=== PATIENT | male | born 1990 | race Caucasian/White ===

== ENCOUNTER 2018-10-27 20:10 | Inpatient (IN) | payer MEDICAID ==
[~2018-10-27] VITALS: Ht 177.8 cm; Wt 76.0 kg
[~2018-10-27 20:10] MED LIST: MESA400C2 PO; METO-292 PO; NO HOME MEDS; ONDA4TAB12 PO; ONDA4TAB6 PO; PHE12.5T PO
[2018-10-27 20:51] LABS: BASOPHILS % (AUTO) 0.4 % (0-1); EOSINOPHILS # (AUTO) 0.1 X10'3 (0-0.9); HEMATOCRIT 46.2 % (42.0-52.0); HEMOGLOBIN 15.6 g/dl (14.0-17.9); LYMPHOCYTES # (AUTO) 2.1 X10'3 (1.1-4.8); LYMPHOCYTES % (AUTO) 19.4 % (21-51); MEAN CORPUSCULAR HEMOGLOBIN 28.5 PG (27.0-31.0); MEAN CORPUSCULAR HGB CONC 33.8 g/dL (33.0-36.5); MEAN CORPUSCULAR VOLUME 84.4 FL (78-98); MEAN PLATELET VOLUME 7.5 FL (7.4-10.4); MONOCYTES # (AUTO) 1.2 X10'3 (0-0.9); MONOCYTES % (AUTO) 10.8 % (2-12); NEUTROPHILS # (AUTO) 7.4 X10'3 (1.8-7.7); NEUTROPHILS % (AUTO) 68.4 % (42-75); PLATELET COUNT 381 X10'3 (140-440); RED BLOOD COUNT 5.48 X10'6 (4.70-6.10); RED CELL DISTRIBUTION WIDTH 13.1 % (11.5-14.5); WHITE BLOOD COUNT 10.8 X10'3 (4.5-11.0)
[2018-10-27 21:10] LABS: ALANINE AMINOTRANSFERASE 19 U/L (12-78); ALBUMIN 3.7 G/DL (3.4-5.0); ALBUMIN/GLOBULIN RATIO 0.9 (1.1-1.5); ALKALINE PHOSPHATASE 94 IU/L (46-116); ANION GAP 14 (8-16); ASPARTATE AMINO TRANSFERASE 10 U/L (10-37); BILIRUBIN,TOTAL 0.6 MG/DL (0.1-1.0); BLOOD UREA NITROGEN 14 MG/DL (7-18); BUN/CREATININE RATIO 16.5 (5.4-32.0); CALCIUM 9.4 MG/DL (8.5-10.1); CHLORIDE 96 MMOL/L (99-107); CREATININE 0.85 MG/DL (0.60-1.10); GLUCOSE 94 MG/DL (70-104); POTASSIUM 3.6 MMOL/L (3.5-5.1); SODIUM 134 MMOL/L (135-145); TOTAL CARBON DIOXIDE 24.3 MMOL/L (24-32); TOTAL PROTEIN 7.8 G/DL (6.4-8.2); eGFR > 90 ML/MIN
[2018-10-27 21:23] LABS: TOTAL CELLS COUNTED 100
[2018-10-27 21:24] LABS: METAMYLEOCYTES% (MANUAL) 1 % (0-0); MYELOCYTES % (MANUAL) 0 % (0-0)
[2018-10-27 21:25] LABS: PLATELET ESTIMATE NORMAL; TOXIC VACUOLATION 2+
[2018-10-27 22:57] LABS: CLARITY,URINE CLEAR (Clear); COLOR,URINE ORANGE (Yellow); UA COLLECTION TYPE VOIDED
[2018-10-27 23:02] LABS: BACTERIA,URINE NONE SEEN /HPF (Neg); MUCUS STRANDS FEW /LPF (Neg); RBC,URINE 0-2 /HPF (0-2); SQUAMOUS EPITHELIAL CELL,UR NONE SEEN /LPF (FEW); WBC,URINE 0-4 /HPF (0-4)
[2018-10-27] MEDS ORDERED: normal saline 1000ML IV soln IVB ONE (23:20)
[2018-10-27] MEDS ORDERED: ondansetron/PF 4mg/2ml inj IV ONE (23:20)
[2018-10-27] MEDS ORDERED: iohexol 300mg/ml 100ml inj. ONE (23:24)
[2018-10-28] VITALS (24 sets, daily range): BP systolic 123–146; BP diastolic 66–86
[2018-10-28] MEDS: morphine 4 MG/ML inj SYRINge IV PRN ×2 (00:05→03:53)
[2018-10-28] MEDS: piperacillin/tazo 4.5gm/100ml 100 ML IV SCH ×3 (00:08→09:27)
[2018-10-28] MEDS ORDERED: morphine 4 MG/ML inj SYRINge IV ONE (01:30)
[2018-10-28] MEDS ORDERED: SULF500T59 PO (01:56)
[2018-10-28] MEDS ORDERED: morphine 2 MG/ML inj. syringe IV PRN ×3 (03:35→10:00)
[2018-10-28] MEDS: normal saline 1000ml 1,000 ML IV SCH ×3 (03:48→23:35)
--- NOTE | 2018-10-28 06:08 | NUR ---
Problems reprioritized. Patient report given, questions answered & plan of care reviewed with NALINI Cooney. Addendum: 10/28/18 at 0608 by Buffy Olivarez RN Amended: Links added.
[2018-10-28] MEDS: sulfaSALAZINE 500 MG tablet PO SCH ×4 (07:13→19:49)
[2018-10-28] MEDS: lactobacillus rhamnosus 10,000 MMU CELLS/CAPSULE PO SCH ×2 (07:14→19:49)
[2018-10-28] MEDS ORDERED: ciprofloxacin lact 400MG/200ML 200 ML IV SCH (08:00)
--- NOTE | 2018-10-28 08:45 | NUR ---
Patients 0800 Zosyn is not available. Called pharmacy they are having axillary bring the medication up. Will administer when medication is available to me.
[2018-10-28 09:04] LABS: BASOPHILS % (AUTO) 0.2 % (0-1); EOSINOPHILS # (AUTO) 0.1 X10'3 (0-0.9); EOSINOPHILS % (AUTO) 1.3 % (0-6); HEMATOCRIT 42.3 % (42.0-52.0); HEMOGLOBIN 14.1 g/dl (14.0-17.9); LYMPHOCYTES # (AUTO) 1.7 X10'3 (1.1-4.8); LYMPHOCYTES % (AUTO) 15.3 % (21-51); MEAN CORPUSCULAR HGB CONC 33.3 g/dL (33.0-36.5); MEAN CORPUSCULAR VOLUME 84.1 FL (78-98); MEAN PLATELET VOLUME 7.5 FL (7.4-10.4); MONOCYTES # (AUTO) 1.4 X10'3 (0-0.9); MONOCYTES % (AUTO) 12.9 % (2-12); NEUTROPHILS # (AUTO) 7.9 X10'3 (1.8-7.7); NEUTROPHILS % (AUTO) 70.3 % (42-75); PLATELET COUNT 300 X10'3 (140-440); RED BLOOD COUNT 5.03 X10'6 (4.70-6.10); RED CELL DISTRIBUTION WIDTH 13.6 % (11.5-14.5); WHITE BLOOD COUNT 11.2 X10'3 (4.5-11.0)
[2018-10-28] MEDS: metroNIDAZOLE-Flagyl 500mg/NS 100 ML IV SCH ×2 (09:08→16:15)
[2018-10-28 09:23] LABS: ALBUMIN 2.7 G/DL (3.4-5.0); ANION GAP 8 (8-16); BLOOD UREA NITROGEN 14 MG/DL (7-18); BUN/CREATININE RATIO 15.4 (5.4-32.0); CALCIUM 7.8 MG/DL (8.5-10.1); CHLORIDE 101 MMOL/L (99-107); CREATININE 0.91 MG/DL (0.60-1.10); GLUCOSE 120 MG/DL (70-104); POTASSIUM 3.1 MMOL/L (3.5-5.1); SODIUM 135 MMOL/L (135-145); TOTAL CARBON DIOXIDE 26.1 MMOL/L (24-32); eGFR > 90 ML/MIN
[2018-10-28 09:44] LABS: PLATELET ESTIMATE NORMAL; TOTAL CELLS COUNTED 100
[2018-10-28 09:45] LABS: TOXIC GRANULATION 2+
[2018-10-28] MEDS ORDERED: magnesium 2GM in 50ml NS 50 ML IV PRN (09:55)
[2018-10-28] MEDS ORDERED: potassium Cl 20 mEq SR tablet PO PRN (09:55)
[2018-10-28] MEDS ORDERED: magnesium 4gm in 100ml NS 100 ML IV PRN (09:55)
[2018-10-28] MEDS ORDERED: magnesium Cl slow-release 64mg tablet PO PRN (09:55)
[2018-10-28] MEDS ORDERED: potassium Cl 40MEQ/NS 500ml 500 ML IV PRN ×2 (09:55)
[2018-10-28] MEDS: morphine 2 MG/ML inj. syringe IV PRN ×2 (10:26→23:13)
[2018-10-28] MEDS: potassium Cl 20 mEq SR tablet PO PRN (10:29)
--- NOTE | 2018-10-28 13:11 | NUR ---
Patient admitted with IBD flair up, per H&P patient had recent diagnosis of ulcerative colitis in 2016, h/o Crohn's. Currently NPO, pending surgery evaluation. Pt has c/o nausea, vomiting, diarrhea and blood in stool. Last documented weight is from 2017 at that time he weighed 63.5 kg, currently weighs 76 kg. Recent poor intake likely d/t n/v r/t flair up. No edema, normal muscle strength. Weight is 101% of IBW. no signs of malnutrition at this time, however will continue to follow and make recommendations as appropriate. Addendum: 10/28/18 at [address] Amended: Links added.
[2018-10-28] MEDS ORDERED: BUPIVAcaine/PF 2.5 mg/ml (0.25%) 30ml vial ONE ×2 (15:32→15:50)
[2018-10-28] MEDS ORDERED: LIDOcaine 1% 30ml preserv. free vial ONE ×2 (15:32→15:50)
--- NOTE | 2018-10-28 15:36 | NUR ---
REPORT CALLED TO JUMANA GAYLE IN RECOVERY. BURAK PICKED PATIENT UP. OPAL SENT WITH PATIENT
[2018-10-28] MEDS ORDERED: sevoflurane 250ml liquid IH ONE (15:56)
[2018-10-28] MEDS ORDERED: midazolam 2 mg/2 ml injection ONE (15:57)
[2018-10-28] MEDS ORDERED: fentaNYL /PF 50mcg/ml 5ml ampule ONE (15:57)
[2018-10-28] MEDS ORDERED: propofol inj 20 ML IV ONE (15:58)
[2018-10-28] MEDS ORDERED: rocuronium 10mg/ml inj IV ONE (15:58)
[2018-10-28] MEDS ORDERED: cefotetan 2gm/isosm dext IVPB 50 ML IV ONE (16:12)
[2018-10-28] MEDS ORDERED: neostigmine methylsulfate 1 MG/ML 10ml vial ONE (16:33)
[2018-10-28] MEDS ORDERED: glycopyrrolate 0.2mg/ml inj ONE (16:33)
--- NOTE | 2018-10-28 16:49 | NUR ---
Received from OR via BED, accompanied by Anesthesiologist DR SANTA and report given by Anesthesiologist. PT AWAKE, DENIES PAIN, 3 ABDOMINAL LAP SITES W/BANDAIDS CDI. Addendum: 10/28/18 at 1714 by Lesa Curry RN Amended: Links added.
[2018-10-28] MEDS ORDERED: HYDROcodone/acetaminophen 5mg/325mg tablet PO PRN (16:50)
[2018-10-28] MEDS ORDERED: ringers solution, lacted 1,000 ML IV SCH (17:08)
[2018-10-28] MEDS ORDERED: morphine 4 MG/ML inj SYRINge IV PRN ×2 (17:10)
[2018-10-28] MEDS ORDERED: meperidine/PF 25mg/ml syringe IV PRN (17:10)
[2018-10-28] MEDS ORDERED: ondansetron/PF 4mg/2ml inj IV PRN (17:10)
[2018-10-28] MEDS ORDERED: proCHLORperazine 10 MG/2 ml inj IV PRN (17:10)
[2018-10-28] MEDS: meperidine/PF 25mg/ml syringe IV PRN ×4 (17:17→18:03)
--- NOTE | 2018-10-28 18:09 | NUR ---
Problems reprioritized. Patient report given, questions answered & plan of care reviewed with NALINI Escalante.
--- NOTE | 2018-10-28 18:30 | NUR ---
I have received report from ELIUD GAYLE and had the opportunity to ask questions and assume patient care. PATIENT STILL IN RECOVERY ROOM.
--- NOTE | 2018-10-28 18:49 | NUR ---
Report called to receiving nurse. Transferred via BED, NO Belonging, RECEIVING RN/COTTON SEED CULLER IN ROOM TO RECEIVE PT, BLL, CALL LIGHT GIVEN, SIDE RAILS UP X 2. Special Issues communicated to receiving nurse. YES. Addendum: 10/28/18 at 1901 by Lesa Curry RN Amended: Links added.
--- NOTE | 2018-10-28 18:50 | NUR ---
PATIENT TRANSFERRED TO ROOM 359B FROM RECOVERY ROOM AFTER LAP APPY WAS DONE BY DR. WAGGONER. PLACED COMFORTABLE IN BED. VITAL SIGNS MONITORED.
[2018-10-28] MEDS: ketorolac tromethamine 15mg/ml inj. IV SCH (19:43)
[2018-10-28] MEDS: ondansetron/PF 4mg/2ml inj IV PRN (19:46)
[2018-10-29] VITALS: BP 128/71
[2018-10-29] MEDS: metroNIDAZOLE-Flagyl 500mg/NS 100 ML IV SCH ×3 (00:13→16:45)
[2018-10-29] MEDS: ketorolac tromethamine 15mg/ml inj. IV SCH ×3 (02:33→14:00)
[2018-10-29] MEDS: normal saline 1000ml 1,000 ML IV SCH ×2 (04:38→19:35)
[2018-10-29] MEDS: morphine 2 MG/ML inj. syringe IV PRN ×3 (05:43→21:28)
[2018-10-29 06:21] LABS: BASOPHILS % (AUTO) 0.2 % (0-1); EOSINOPHILS # (AUTO) 0.2 X10'3 (0-0.9); EOSINOPHILS % (AUTO) 2.1 % (0-6); HEMATOCRIT 38.7 % (42.0-52.0); LYMPHOCYTES # (AUTO) 1.2 X10'3 (1.1-4.8); LYMPHOCYTES % (AUTO) 13.7 % (21-51); MEAN CORPUSCULAR HEMOGLOBIN 28.4 PG (27.0-31.0); MEAN CORPUSCULAR HGB CONC 33.5 g/dL (33.0-36.5); MEAN CORPUSCULAR VOLUME 84.6 FL (78-98); MEAN PLATELET VOLUME 7.8 FL (7.4-10.4); MONOCYTES # (AUTO) 1.1 X10'3 (0-0.9); MONOCYTES % (AUTO) 12.6 % (2-12); NEUTROPHILS # (AUTO) 6.2 X10'3 (1.8-7.7); NEUTROPHILS % (AUTO) 71.4 % (42-75); PLATELET COUNT 294 X10'3 (140-440); RED BLOOD COUNT 4.57 X10'6 (4.70-6.10); RED CELL DISTRIBUTION WIDTH 13.4 % (11.5-14.5); WHITE BLOOD COUNT 8.7 X10'3 (4.5-11.0)
[2018-10-29 06:23] LABS: ANION GAP 14 (8-16); BLOOD UREA NITROGEN 6 MG/DL (7-18); BUN/CREATININE RATIO 8.6 (5.4-32.0); CALCIUM 7.9 MG/DL (8.5-10.1); CHLORIDE 102 MMOL/L (99-107); GLUCOSE 84 MG/DL (70-104); MAGNESIUM 1.7 MG/DL (1.5-2.4); POTASSIUM 3.1 MMOL/L (3.5-5.1); SODIUM 136 MMOL/L (135-145); TOTAL CARBON DIOXIDE 20.3 MMOL/L (24-32); eGFR > 90 ML/MIN
[2018-10-29 06:24] LABS: ALANINE AMINOTRANSFERASE 13 U/L (12-78); ALBUMIN 2.2 G/DL (3.4-5.0); ALBUMIN/GLOBULIN RATIO 0.6 (1.1-1.5); ALKALINE PHOSPHATASE 67 IU/L (46-116); ASPARTATE AMINO TRANSFERASE 10 U/L (10-37); BILIRUBIN,TOTAL 0.4 MG/DL (0.1-1.0); TOTAL PROTEIN 5.8 G/DL (6.4-8.2)
--- NOTE | 2018-10-29 06:30 | NUR ---
Patient in room [facility]. I have received report from DANN QUIGLEY RN and had the opportunity to ask questions and assume patient care.
--- NOTE | 2018-10-29 06:30 | NUR ---
Problems reprioritized. Patient report given, questions answered & plan of care reviewed with BRITNI GAYLE.
[2018-10-29 07:00] VITALS: BP 128/72
[2018-10-29] MEDS: lactobacillus rhamnosus 10,000 MMU CELLS/CAPSULE PO SCH ×2 (08:52→21:26)
[2018-10-29] MEDS: sulfaSALAZINE 500 MG tablet PO SCH ×4 (08:52→21:26)
[2018-10-29] MEDS: potassium Cl 20 mEq SR tablet PO PRN ×3 (09:18→21:25)
[2018-10-29 11:00] VITALS: BP 125/79
[2018-10-29 11:32] LABS: TOTAL CELLS COUNTED 100
[2018-10-29 11:33] LABS: PLATELET ESTIMATE NORMAL; TOXIC GRANULATION 3+
[2018-10-29] MEDS ORDERED: morphine 2 MG/ML inj. syringe IV PRN (11:45)
[2018-10-29] MEDS: methylPREDNISolone sod succ 125mg/2ml vial IV SCH ×2 (12:23→16:47)
--- NOTE | 2018-10-29 18:01 | NUR ---
Problems reprioritized. Patient report given, questions answered & plan of care reviewed with DANN QUIGLEY RN.
--- NOTE | 2018-10-29 18:30 | NUR ---
Patient in room [facility]. I have received report from BRITNI GAYLE and had the opportunity to ask questions and assume patient care.
[2018-10-29] MEDS: ondansetron/PF 4mg/2ml inj IV PRN (18:53)
[2018-10-29 20:00] VITALS: BP 133/82
[2018-10-30] VITALS: BP 126/69
[2018-10-30] MEDS: methylPREDNISolone sod succ 125mg/2ml vial IV SCH ×4 (00:08→23:38)
[2018-10-30] MEDS: metroNIDAZOLE-Flagyl 500mg/NS 100 ML IV SCH ×2 (00:08→08:15)
[2018-10-30] MEDS: normal saline 1000ml 1,000 ML IV SCH ×3 (00:19→23:46)
[2018-10-30 05:49] LABS: BASOPHILS % (AUTO) 0.1 % (0-1); EOSINOPHILS % (AUTO) 0.1 % (0-6); HEMATOCRIT 40.4 % (42.0-52.0); HEMOGLOBIN 13.6 g/dl (14.0-17.9); LYMPHOCYTES % (AUTO) 14.5 % (21-51); MEAN CORPUSCULAR HEMOGLOBIN 28.4 PG (27.0-31.0); MEAN CORPUSCULAR HGB CONC 33.6 g/dL (33.0-36.5); MEAN CORPUSCULAR VOLUME 84.4 FL (78-98); MEAN PLATELET VOLUME 7.3 FL (7.4-10.4); MONOCYTES # (AUTO) 0.5 X10'3 (0-0.9); MONOCYTES % (AUTO) 7.9 % (2-12); NEUTROPHILS # (AUTO) 5.4 X10'3 (1.8-7.7); NEUTROPHILS % (AUTO) 77.4 % (42-75); PLATELET COUNT 371 X10'3 (140-440); RED BLOOD COUNT 4.79 X10'6 (4.70-6.10); RED CELL DISTRIBUTION WIDTH 13.7 % (11.5-14.5)
[2018-10-30 06:28] LABS: ALANINE AMINOTRANSFERASE 13 U/L (12-78); ALBUMIN 2.4 G/DL (3.4-5.0); ALBUMIN/GLOBULIN RATIO 0.6 (1.1-1.5); ALKALINE PHOSPHATASE 66 IU/L (46-116); ANION GAP 8 (8-16); ASPARTATE AMINO TRANSFERASE 9 U/L (10-37); BILIRUBIN,TOTAL 0.2 MG/DL (0.1-1.0); BLOOD UREA NITROGEN 7 MG/DL (7-18); BUN/CREATININE RATIO 9.3 (5.4-32.0); CALCIUM 8.6 MG/DL (8.5-10.1); CHLORIDE 102 MMOL/L (99-107); CREATININE 0.75 MG/DL (0.60-1.10); GLUCOSE 159 MG/DL (70-104); MAGNESIUM 1.9 MG/DL (1.5-2.4); POTASSIUM 4.4 MMOL/L (3.5-5.1); SODIUM 136 MMOL/L (135-145); TOTAL CARBON DIOXIDE 26.2 MMOL/L (24-32); TOTAL PROTEIN 6.1 G/DL (6.4-8.2); eGFR > 90 ML/MIN
--- NOTE | 2018-10-30 06:30 | NUR ---
Problems reprioritized. Patient report given, questions answered & plan of care reviewed with NEREIDA GAYLE.
[2018-10-30 07:03] VITALS: BP 104/68
[2018-10-30] MEDS: sulfaSALAZINE 500 MG tablet PO SCH ×4 (08:15→20:00)
[2018-10-30] MEDS: lactobacillus rhamnosus 10,000 MMU CELLS/CAPSULE PO SCH ×2 (08:15→19:59)
[2018-10-30 11:00] VITALS: BP 144/77
[2018-10-30] MEDS: HYDROcodone/acetaminophen 10/325mg tab PO PRN ×3 (11:51→23:45)
[2018-10-30] MEDS: metroNIDAZOLE 500mg tablet PO SCH ×2 (16:10→23:39)
--- NOTE | 2018-10-30 18:20 | NUR ---
Patient in room [facility]. I have received report from NEREIDA GAYLE and had the opportunity to ask questions and assume patient care. Addendum: 10/30/18 at 1820 by Olena Saldana RN Amended: Links added.
[2018-10-30 19:30] VITALS: BP 138/84
--- NOTE | 2018-10-30 20:06 | NUR ---
medicated for pain at this time and [facility] meds.
--- NOTE | 2018-10-30 22:00 | NUR ---
watching tv no changes at this time.
--- NOTE | 2018-10-30 23:48 | NUR ---
medicated for pain with norco and saline for iv would not scan had to administer it. pt watching tv and took midnight meds.
[2018-10-31 00:13] VITALS: BP 130/80
--- NOTE | 2018-10-31 00:57 | NUR ---
pt awake and texting. no changes.
--- NOTE | 2018-10-31 02:30 | NUR ---
resting eyes closed without changes.
--- NOTE | 2018-10-31 04:29 | NUR ---
resting eyes closed without changes.
--- NOTE | 2018-10-31 06:19 | NUR ---
Problems reprioritized. Patient report given, questions answered & plan of care reviewed with Melvina Scales. Addendum: 10/31/18 at 0619 by Olena Saldana RN Amended: Links added.
--- NOTE | 2018-10-31 06:31 | NUR ---
Patient in room [facility]. I have received report from andreas ahmadi and had the opportunity to ask questions and assume patient care.
[2018-10-31 06:37] LABS: ALANINE AMINOTRANSFERASE 14 U/L (12-78); ALBUMIN 2.7 G/DL (3.4-5.0); ALBUMIN/GLOBULIN RATIO 0.8 (1.1-1.5); ALKALINE PHOSPHATASE 69 IU/L (46-116); ANION GAP 7 (8-16); BILIRUBIN,TOTAL 0.3 MG/DL (0.1-1.0); BLOOD UREA NITROGEN 13 MG/DL (7-18); BUN/CREATININE RATIO 19.7 (5.4-32.0); CALCIUM 8.8 MG/DL (8.5-10.1); CHLORIDE 102 MMOL/L (99-107); CREATININE 0.66 MG/DL (0.60-1.10); GLUCOSE 143 MG/DL (70-104); MAGNESIUM 2.1 MG/DL (1.5-2.4); SODIUM 136 MMOL/L (135-145); TOTAL PROTEIN 6.2 G/DL (6.4-8.2); eGFR > 90 ML/MIN
[2018-10-31 06:39] LABS: ASPARTATE AMINO TRANSFERASE 10 U/L (10-37); POTASSIUM 3.6 MMOL/L (3.5-5.1)
[2018-10-31 07:03] VITALS: BP 122/75
[2018-10-31] MEDS: sulfaSALAZINE 500 MG tablet PO SCH ×3 (07:20→16:27)
[2018-10-31] MEDS: lactobacillus rhamnosus 10,000 MMU CELLS/CAPSULE PO SCH (07:20)
[2018-10-31] MEDS: methylPREDNISolone sod succ 125mg/2ml vial IV SCH ×2 (07:20→16:27)
[2018-10-31] MEDS: metroNIDAZOLE 500mg tablet PO SCH ×2 (07:20→16:27)
[2018-10-31] MEDS: ondansetron/PF 4mg/2ml inj IV PRN (08:50)
[2018-10-31] MEDS: morphine 2 MG/ML inj. syringe IV PRN (08:53)
[2018-10-31 09:10] LABS: BASOPHILS % (AUTO) 0.1 % (0-1); EOSINOPHILS % (AUTO) 0.1 % (0-6); HEMOGLOBIN 13.4 g/dl (14.0-17.9); LYMPHOCYTES # (AUTO) 1.4 X10'3 (1.1-4.8); LYMPHOCYTES % (AUTO) 13.1 % (21-51); MEAN CORPUSCULAR HEMOGLOBIN 28.6 PG (27.0-31.0); MEAN CORPUSCULAR HGB CONC 34.4 g/dL (33.0-36.5); MEAN CORPUSCULAR VOLUME 83.3 FL (78-98); MEAN PLATELET VOLUME 7.6 FL (7.4-10.4); MONOCYTES % (AUTO) 9.4 % (2-12); NEUTROPHILS % (AUTO) 77.3 % (42-75); PLATELET COUNT 409 X10'3 (140-440); RED BLOOD COUNT 4.68 X10'6 (4.70-6.10); WHITE BLOOD COUNT 10.3 X10'3 (4.5-11.0)
[2018-10-31 10:18] LABS: TOTAL CELLS COUNTED 100
[2018-10-31 10:20] LABS: PLATELET ESTIMATE NORMAL; POLYCHROMASIA FEW
[2018-10-31] MEDS: normal saline 1000ml 1,000 ML IV SCH (11:35)
[2018-10-31 12:38] VITALS: BP 113/58
--- NOTE | 2018-10-31 15:57 | NUR ---
reassessment: Pt s/p appendectomy for acute appendicitis w/ continual ulcerative colitis/crohn's/IBD; abdominal discomfort improving today per MD note though N/V/abdominal pain documented still in EMR. Pt advanced to full liquid diet w/ 50% PO meals. LBM 10/29. Pt will need ulcerative colitis diet ed once stable prior to d/c. Will continue to monitor for diet advancement and tolerance. Rec: 1. advance diet per MD to low-residue 2. monitor for ONS needs 3. wt per rx 4. ulcerative colitis/crohn's diet ed once stable prior to d/c Addendum: 10/31/18 at [address] Amended: Links added.
[2018-10-31] MEDS ORDERED: METR-159 PO (16:17)
[2018-10-31] MEDS ORDERED: HYDR-4383 PO (16:17)
[2018-10-31] MEDS ORDERED: PRED10TA23 PO (16:20)
--- NOTE | 2018-10-31 17:29 | NUR ---
PT DISCHARGED IN STABLE CONDITION. LEFT FACILITY IN PRIVATE VEHICLE. IV DC CANULA INTACT. ALL BELONGINGS IN HAND INCLUDING SCRIPT FOR [facility]. FOLLOW UP INSTRUCTIONS GIVEN, PT AWARE TO FOLLOW UP WITH PCP AND GET REFERRAL FOR GI SPECIALIST. Addendum: 10/31/18 at 1731 by Debbie Perdue RN Amended: Links added.
== END 2018-10-31 17:01 | disposition home or self-care (01) | DRG 234 ==
LOC: ER 20:10 → SUR 3N 10-28 04:17 → CMPBEDREQ 10-28 04:18 → PACU 10-28 16:01 → SUR 3N 10-28 19:00
PROVIDERS: ADMIT Internal Medicine; ATTEND Internal Medicine
PROC: BW211ZZ Computerized Tomography (CT Scan) of Abdomen and Pelvis using Low Osmolar Contrast (ICD-10-PCS; 2018-10-27)
PROC: 0DTJ4ZZ Resection of Appendix, Percutaneous Endoscopic Approach (ICD-10-PCS; principal; 2018-10-28 15:56)
DX: K35.80 Unspecified acute appendicitis (principal); K50.90 Crohn's disease, unspecified, without complications; E87.6 Hypokalemia; F12.90 Cannabis use, unspecified, uncomplicated; Z65.3 Problems related to other legal circumstances; Z79.899 Other long term (current) drug therapy; K92.1 Melena
CPT/HCPCS: 36415; 74177; 80048; 80053; 81001; 83735; 85025; 87070; 96361; 96374; 96375; 96376; 99285; A7000; G0378; J0744; J1885; J2175; J2250; J2270; J2405; J2543; J2704; J2710; J2930; J3010; J3490; J7030; J7120; Q9967

== ENCOUNTER 2018-11-03 13:06 | Inpatient (IN) | payer MEDICAID ==
[~2018-11-03] VITALS: Ht 177.8 cm; Wt 64.1 kg
[~2018-11-03 13:06] MED LIST changes: +HYDR-4383 PO; -MESA400C2 PO; -METO-292 PO; +METR-159 PO; -NO HOME MEDS; -ONDA4TAB12 PO; -ONDA4TAB6 PO; -PHE12.5T PO; +PRED10TA23 PO; +SULF500T59 PO
[2018-11-03] MEDS ORDERED: dexamethasone sod phosphate 10mg/ml inj IV STA (13:26)
[2018-11-03] MEDS ORDERED: glycopyrrolate 0.2mg/ml inj IV ONE (13:30)
[2018-11-03] MEDS ORDERED: metoclopramide 5 mg/ml inj IV ONE (13:30)
[2018-11-03] MEDS ORDERED: HYDROmorphone inj. 0.5 MG/0.5 ML DISP.SYRIN IV PRN ×2 (13:30→15:50)
[2018-11-03] MEDS ORDERED: diphenhydrAMINE 50 mg/ml inj IV ONE (13:30)
[2018-11-03] MEDS ORDERED: LORazepam 2 mg/ml vial IV ONE (13:30)
[2018-11-03] MEDS ORDERED: normal saline 1000ML IV soln IVB ONE ×2 (13:30)
[2018-11-03 13:50] LABS: BASOPHILS % (AUTO) 0.2 % (0-1); HEMOGLOBIN 16.5 g/dl (14.0-17.9); RED CELL DISTRIBUTION WIDTH 13.8 % (11.5-14.5)
[2018-11-03] MEDS ORDERED: iohexol 300mg/ml 100ml inj. ONE (14:00)
[2018-11-03 14:03] LABS: EOSINOPHILS # (AUTO) 0.3 X10'3 (0-0.9); HEMATOCRIT 48.4 % (42.0-52.0); LYMPHOCYTES # (AUTO) 1.5 X10'3 (1.1-4.8); LYMPHOCYTES % (AUTO) 10.7 % (21-51); MEAN CORPUSCULAR HEMOGLOBIN 28.3 PG (27.0-31.0); MEAN CORPUSCULAR VOLUME 83.1 FL (78-98); MONOCYTES # (AUTO) 0.6 X10'3 (0-0.9); MONOCYTES % (AUTO) 4.1 % (2-12); NEUTROPHILS # (AUTO) 11.8 X10'3 (1.8-7.7); PLATELET COUNT 416 X10'3 (140-440); RED BLOOD COUNT 5.83 X10'6 (4.70-6.10); WHITE BLOOD COUNT 14.2 X10'3 (4.5-11.0)
[2018-11-03 14:07] LABS: ALANINE AMINOTRANSFERASE 23 U/L (12-78); ALBUMIN 3.4 G/DL (3.4-5.0); ALBUMIN/GLOBULIN RATIO 0.9 (1.1-1.5); ALKALINE PHOSPHATASE 68 IU/L (46-116); ANION GAP 9 (8-16); ASPARTATE AMINO TRANSFERASE 15 U/L (10-37); BILIRUBIN,TOTAL 0.5 MG/DL (0.1-1.0); BLOOD UREA NITROGEN 11 MG/DL (7-18); BUN/CREATININE RATIO 12.2 (5.4-32.0); CALCIUM 8.9 MG/DL (8.5-10.1); CHLORIDE 101 MMOL/L (99-107); GLUCOSE 121 MG/DL (70-104); LIPASE 104 U/L (73-393); POTASSIUM 3.4 MMOL/L (3.5-5.1); SODIUM 137 MMOL/L (135-145); TOTAL CARBON DIOXIDE 27.3 MMOL/L (24-32); TOTAL PROTEIN 7.4 G/DL (6.4-8.2); eGFR > 90 ML/MIN
[2018-11-03] MEDS ORDERED: metroNIDAZOLE-Flagyl 500mg/NS 100 ML IV STA (15:02)
[2018-11-03 15:12] LABS: TOTAL CELLS COUNTED 100
[2018-11-03 15:14] LABS: PLATELET ESTIMATE NORMAL; POLYCHROMASIA FEW; TOXIC GRANULATION 2+; TOXIC VACUOLATION 2+
[2018-11-03] MEDS ORDERED: ondansetron/PF 4mg/2ml inj IV PRN (15:50)
[2018-11-03] MEDS ORDERED: potassium Cl 40MEQ/NS 500ml 500 ML IV PRN (15:50)
[2018-11-03] MEDS: K and/or MAG REPLACEMENT MC SCH (15:50)
[2018-11-03] MEDS ORDERED: magnesium Cl slow-release 64mg tablet PO PRN (15:50)
[2018-11-03] MEDS ORDERED: potassium CL 10mEq/100ml bag 100 ML IV PRN (15:50)
[2018-11-03] MEDS ORDERED: HYDROmorphone 1 mg/ml syringe IV PRN (15:50)
[2018-11-03] MEDS ORDERED: acetaminophen 325mg tablet PO PRN (15:50)
[2018-11-03] MEDS ORDERED: potassium Cl 20 mEq SR tablet PO PRN ×2 (15:50)
[2018-11-03] MEDS ORDERED: magnesium 4gm in 100ml NS 100 ML IV PRN (15:50)
[2018-11-03] MEDS ORDERED: mag hydrox/Alum hydrox/simeth 30ml oral suspension PO PRN (15:50)
[2018-11-03] MEDS ORDERED: magnesium 2GM in 50ml NS 50 ML IV PRN (15:50)
[2018-11-03] MEDS: metroNIDAZOLE-Flagyl 500mg/NS 100 ML IV SCH ×2 (16:00→23:22)
[2018-11-03] MEDS ORDERED: sulfaSALAZINE 500 MG tablet PO SCH (16:05)
[2018-11-03] MEDS ORDERED: methylPREDNISolone sod succ 125mg/2ml vial IV SCH (16:05)
[2018-11-03] MEDS: potassium Cl 20mEq in NS 1,000 ML IV SCH (17:15)
[2018-11-03] MEDS: pantoprazole 40 MG vial IV SCH (17:15)
[2018-11-03] MEDS: levoFLOXACIN-Levaquin 500mg/D5 100 ML IV SCH (17:15)
--- NOTE | 2018-11-03 17:16 | NUR ---
Received report from NALINI Reyna in ER. Awaiting patient.
[2018-11-03 17:17] LABS: BASOPHILS % (AUTO) 0.1 % (0-1); EOSINOPHILS # (AUTO) 0.1 X10'3 (0-0.9); EOSINOPHILS % (AUTO) 0.9 % (0-6); HEMATOCRIT 39.5 % (42.0-52.0); HEMOGLOBIN 13.2 g/dl (14.0-17.9); LYMPHOCYTES # (AUTO) 0.9 X10'3 (1.1-4.8); LYMPHOCYTES % (AUTO) 7.3 % (21-51); MEAN CORPUSCULAR HEMOGLOBIN 27.7 PG (27.0-31.0); MEAN CORPUSCULAR HGB CONC 33.4 g/dL (33.0-36.5); MEAN CORPUSCULAR VOLUME 82.8 FL (78-98); MONOCYTES # (AUTO) 0.2 X10'3 (0-0.9); MONOCYTES % (AUTO) 1.5 % (2-12); NEUTROPHILS # (AUTO) 10.7 X10'3 (1.8-7.7); NEUTROPHILS % (AUTO) 90.2 % (42-75); PLATELET COUNT 321 X10'3 (140-440); RED BLOOD COUNT 4.76 X10'6 (4.70-6.10); RED CELL DISTRIBUTION WIDTH 13.7 % (11.5-14.5); WHITE BLOOD COUNT 11.8 X10'3 (4.5-11.0)
[2018-11-03 17:30] VITALS: BP 113/64
--- NOTE | 2018-11-03 17:30 | NUR ---
Patient arrived to the floor. VSS. no complaints.
[2018-11-03] MEDS: HYDROcodone/acetaminophen 10/325mg tab PO PRN ×2 (17:39→23:36)
--- NOTE | 2018-11-03 18:41 | NUR ---
Problems reprioritized. Patient report given, questions answered & plan of care reviewed with NALINI Vazquez.
--- NOTE | 2018-11-03 19:22 | NUR ---
Patient in room [facility]. I have received report from NALINI Cooney and had the opportunity to ask questions and assume patient care. Addendum: 11/03/18 at 1924 by Buffy Olivarez RN Amended: Links added.
[2018-11-03] MEDS: methylPREDNISolone sod succ 125mg/2ml vial IV SCH (19:50)
[2018-11-03] MEDS: mesalamine 1.2gm ER tablet PO SCH (19:51)
[2018-11-03 20:00] VITALS: BP 123/71
[2018-11-03] MEDS ORDERED: metroNIDAZOLE 500mg tablet PO SCH (21:00)
[2018-11-04] VITALS: BP 115/73
[2018-11-04] MEDS: methylPREDNISolone sod succ 125mg/2ml vial IV SCH ×4 (01:28→19:39)
[2018-11-04] MEDS: potassium Cl 20mEq in NS 1,000 ML IV SCH (01:28)
[2018-11-04 05:51] LABS: BASOPHILS % (AUTO) 0.1 % (0-1); EOSINOPHILS % (AUTO) 0.2 % (0-6); HEMATOCRIT 37.4 % (42.0-52.0); HEMOGLOBIN 12.7 g/dl (14.0-17.9); LYMPHOCYTES # (AUTO) 1.2 X10'3 (1.1-4.8); MEAN CORPUSCULAR HEMOGLOBIN 28.3 PG (27.0-31.0); MEAN CORPUSCULAR VOLUME 83.2 FL (78-98); MEAN PLATELET VOLUME 7.1 FL (7.4-10.4); MONOCYTES # (AUTO) 0.5 X10'3 (0-0.9); MONOCYTES % (AUTO) 4.7 % (2-12); NEUTROPHILS # (AUTO) 9.1 X10'3 (1.8-7.7); PLATELET COUNT 315 X10'3 (140-440); RED CELL DISTRIBUTION WIDTH 13.8 % (11.5-14.5); WHITE BLOOD COUNT 10.9 X10'3 (4.5-11.0)
[2018-11-04 06:13] LABS: ALANINE AMINOTRANSFERASE 17 U/L (12-78); ALBUMIN 2.4 G/DL (3.4-5.0); ALBUMIN/GLOBULIN RATIO 0.8 (1.1-1.5); ALKALINE PHOSPHATASE 47 IU/L (46-116); ANION GAP 6 (8-16); ASPARTATE AMINO TRANSFERASE 10 U/L (10-37); BILIRUBIN,TOTAL 0.3 MG/DL (0.1-1.0); BLOOD UREA NITROGEN 7 MG/DL (7-18); BUN/CREATININE RATIO 11.5 (5.4-32.0); CALCIUM 8.1 MG/DL (8.5-10.1); CHLORIDE 105 MMOL/L (99-107); CREATININE 0.61 MG/DL (0.60-1.10); GLUCOSE 139 MG/DL (70-104); POTASSIUM 3.8 MMOL/L (3.5-5.1); SODIUM 137 MMOL/L (135-145); TOTAL CARBON DIOXIDE 25.6 MMOL/L (24-32); TOTAL PROTEIN 5.4 G/DL (6.4-8.2); eGFR > 90 ML/MIN
--- NOTE | 2018-11-04 06:23 | NUR ---
Problems reprioritized. Patient report given, questions answered & plan of care reviewed with NALINI Haley. Addendum: 11/04/18 at 0623 by Buffy Olivarez RN Amended: Links added.
[2018-11-04 08:00] VITALS: BP_SYST 103; BP_SYST 118; BP_DIAS 57; BP_DIAS 80
[2018-11-04] MEDS ORDERED: predniSONE 20 mg tablet PO SCH (08:00)
[2018-11-04] MEDS: K and/or MAG REPLACEMENT MC SCH (08:00)
[2018-11-04] MEDS ORDERED: PREDNISONE PO SCH (08:00)
[2018-11-04 08:42] LABS: C DIFF ANTIGEN NEGATIVE (NEGATIVE); C DIFF SPECIMEN=DIARRHEA? ACCEPTABLE; C DIFFICILE TOXINS A&B NEGATIVE (Neg)
[2018-11-04 09:03] LABS: OCCULT BLOOD STOOL POSITIVE (Neg)
[2018-11-04] MEDS: levoFLOXACIN-Levaquin 500mg/D5 100 ML IV SCH ×2 (09:44→11:33)
[2018-11-04] MEDS: pantoprazole 40 MG vial IV SCH (09:44)
[2018-11-04] MEDS: mesalamine 1.2gm ER tablet PO SCH (09:48)
[2018-11-04] MEDS: HYDROcodone/acetaminophen 10/325mg tab PO PRN (09:50)
[2018-11-04 10:03] VITALS: BP 128/70
[2018-11-04 11:00] VITALS: BP 116/70
[2018-11-04] MEDS: metroNIDAZOLE-Flagyl 500mg/NS 100 ML IV SCH ×3 (11:35→23:51)
--- NOTE | 2018-11-04 12:41 | NUR ---
PAGER ID: [phone] MESSAGE: [phone] ABBIE HUERTAS DO YOU STILL WANT THIS PT. ON IV NS 20K @100? HIS K IS 4.3 TODAY. JOSÉ GAYLE [id number]
--- NOTE | 2018-11-04 16:37 | NUR ---
Malnutrition consult: Pt admit w/ recurrent LGIB and stable hemoglobin per MD note; hx Chron's. Pt has no wt loss hx from prior admits, no edema/wounds, normal strength, and PO 100% clear liquid diet. At this time pt does not qualify for malnutrition; will monitor for additional criteria this admit. Addendum: 11/04/18 at [address] Amended: Links added. Addendum: 11/04/18 at [address] *Crohn's
[2018-11-04] MEDS: lactobacillus rhamnosus 10,000 MMU CELLS/CAPSULE PO SCH (19:39)
[2018-11-04] MEDS: HYDROcodone/acetaminophen 5mg/325mg tablet PO PRN ×2 (19:43→23:53)
[2018-11-04 20:00] VITALS: BP_SYST 109; BP_SYST 110; BP_SYST 137; BP_DIAS 60; BP_DIAS 67; BP_DIAS 69
[2018-11-04] MEDS: famotidine 20mg tablet PO SCH (20:13)
[2018-11-05] VITALS: BP 114/67
--- NOTE | 2018-11-05 06:32 | NUR ---
Report given to Sudha GAYLE.
[2018-11-05 06:40] LABS: ALANINE AMINOTRANSFERASE 17 U/L (12-78); ALBUMIN 2.8 G/DL (3.4-5.0); ALBUMIN/GLOBULIN RATIO 0.9 (1.1-1.5); ALKALINE PHOSPHATASE 52 IU/L (46-116); ANION GAP 6 (8-16); ASPARTATE AMINO TRANSFERASE 10 U/L (10-37); BILIRUBIN,TOTAL 0.3 MG/DL (0.1-1.0); BLOOD UREA NITROGEN 12 MG/DL (7-18); BUN/CREATININE RATIO 15.6 (5.4-32.0); CALCIUM 8.5 MG/DL (8.5-10.1); CHLORIDE 104 MMOL/L (99-107); CREATININE 0.77 MG/DL (0.60-1.10); GLUCOSE 116 MG/DL (70-104); MAGNESIUM 2.2 MG/DL (1.5-2.4); POTASSIUM 3.9 MMOL/L (3.5-5.1); SODIUM 139 MMOL/L (135-145); TOTAL CARBON DIOXIDE 28.7 MMOL/L (24-32); eGFR > 90 ML/MIN
[2018-11-05 07:00] VITALS: BP 117/75
[2018-11-05 08:00] VITALS: BP 108/68
[2018-11-05] MEDS: K and/or MAG REPLACEMENT MC SCH (08:00)
[2018-11-05] MEDS ORDERED: methylPREDNISolone sod succ/PF 40mg inj. IV SCH (08:00)
[2018-11-05] MEDS: levoFLOXACIN-Levaquin 500mg/D5 100 ML IV SCH (08:57)
[2018-11-05] MEDS: mesalamine 1.2gm ER tablet PO SCH (08:59)
[2018-11-05] MEDS: HYDROcodone/acetaminophen 5mg/325mg tablet PO PRN (08:59)
[2018-11-05] MEDS: famotidine 20mg tablet PO SCH (08:59)
[2018-11-05] MEDS: lactobacillus rhamnosus 10,000 MMU CELLS/CAPSULE PO SCH (08:59)
[2018-11-05] MEDS: metroNIDAZOLE-Flagyl 500mg/NS 100 ML IV SCH (10:40)
[2018-11-05 12:00] VITALS: BP 121/76
[2018-11-05] MEDS ORDERED: METR-159 PO (12:32)
[2018-11-05] MEDS ORDERED: LEVO500T89 PO (12:32)
[2018-11-05] MEDS ORDERED: PRED10TA23 PO (12:32)
[2018-11-05] MEDS ORDERED: LACT1CAP26 PO (12:32)
[2018-11-05] MEDS ORDERED: MESA1.2T PO (12:32)
[2018-11-05 12:33] VITALS: BP 124/69
--- NOTE | 2018-11-05 13:00 | NUR ---
PT. DISCHARGED IN A STABLE CONDITION TO HOME. DISCHARGE PAPERWORK DISCUSSED WITH PT. HE IS AWARE HE NEEDS TO FIND A PCP. DIET, MEDICATIONS REVIEWED WITH PT. GOOD FEEDBACK. IV DC'D, BANDAGED, WRISTBANDS REMOVED. PT. LEFT WITH HIS BELONGINGS, ESCORTED OUT OF FACILITY BY STAFF MEMBER TO PRIVATE VEHICLE WITH FAMILY DRIVING. PT. KNOWS TO RETURN IF SYMPTOMS WORSEN.
--- NOTE | 2018-11-05 14:02 | NUR ---
Discharge instructions discussed with MD. Recommendation for pt. to f/u at GI MD. Pt. needs referal from PCP but currently does not have one. States he usually goes to [facility] and will follow up there to get GI referral. Paperwork reviewed with pt. and IV JAMI'd. Pt. Awaiting a ride from his significant other. Educated to make nurse aware before leaving facility.
== END 2018-11-05 14:40 | disposition home or self-care (01) | DRG 245 ==
LOC: ER 13:07 → EDBEDREQ 16:00 → SUR 3N 16:07 → CMPBEDREQ 11-04 19:42
PROVIDERS: ADMIT Internal Medicine; ATTEND Hospitalist
PROC: BW211ZZ Computerized Tomography (CT Scan) of Abdomen and Pelvis using Low Osmolar Contrast (ICD-10-PCS; principal; 2018-11-03)
DX: K50.90 Crohn's disease, unspecified, without complications (principal); F12.90 Cannabis use, unspecified, uncomplicated; Z90.49 Acquired absence of other specified parts of digestive tract
CPT/HCPCS: 36415; 74177; 80053; 82272; 83690; 83735; 85025; 87045; 87046; 87070; 87324; 87449; 89055; 96365; 96375; 99285; C9113; G0378; J1100; J1170; J1200; J1956; J2060; J2765; J2920; J2930; J3490; Q9967

== ENCOUNTER 2020-02-27 04:22 | Emergency (ER) | payer MEDICAID ==
[~2020-02-27] VITALS: Ht 177.8 cm; Wt 63.6 kg
[~2020-02-27 04:22] MED LIST changes: -HYDR-4383 PO; +LACT1CAP26 PO; +MESA1.2T PO; -METR-159 PO; +METR500T PO; -PRED10TA23 PO; -SULF500T59 PO
[2020-02-27] MEDS ORDERED: ibuprofen tablet 400 MG TABLET PO ONE (04:30)
[2020-02-27] MEDS ORDERED: acetaminophen 325mg tablet PO ONE (04:30)
[2020-02-27] MEDS ORDERED: cephalexin 500mg capsule PO ONE (04:40)
[2020-02-27] MEDS ORDERED: sulfamethoxazole/trimethoprim DS (800/160mg) tablet PO ONE (04:40)
[2020-02-27] MEDS ORDERED: CEPH500C5 PO (04:40)
[2020-02-27] MEDS ORDERED: SULF1TAB49 PO (04:40)
[2020-02-27 04:45] VITALS: BP 132/80
== END 2020-02-27 04:46 | disposition home or self-care (01) ==
LOC: ER 04:22
DX: L03.113 Cellulitis of right upper limb (principal); F19.10 Other psychoactive substance abuse, uncomplicated; F12.90 Cannabis use, unspecified, uncomplicated; F15.90 Other stimulant use, unspecified, uncomplicated; Z90.49 Acquired absence of other specified parts of digestive tract; Z56.0 Unemployment, unspecified; Z79.2 Long term (current) use of antibiotics; Z79.899 Other long term (current) drug therapy
CPT/HCPCS: 99284

== ENCOUNTER 2020-07-08 02:16 | Emergency (ER) | payer MEDICAID ==
[~2020-07-08] VITALS: Ht 180.3 cm; Wt 68.0 kg
[2020-07-08 02:31] VITALS: BP 142/78
[2020-07-08] MEDS ORDERED: IBUP-1984 PO (03:03)
[2020-07-08] MEDS ORDERED: ACET-812 PO (03:03)
[2020-07-08] MEDS ORDERED: CLIN150C8 PO (03:03)
[2020-07-08] MEDS ORDERED: ibuprofen tablet 400 MG TABLET PO ONE (03:05)
[2020-07-08] MEDS ORDERED: ondansetron 4mg rapidly disintigrating tab PO ONE (03:05)
[2020-07-08] MEDS ORDERED: clindamycin 150mg capsule PO ONE (03:05)
[2020-07-08] MEDS ORDERED: acetaminophen 325mg tablet PO ONE (03:05)
== END 2020-07-08 03:33 | disposition home or self-care (01) ==
LOC: ER 02:16
DX: S71.132A Puncture wound without foreign body, left thigh, initial encounter (principal); F12.90 Cannabis use, unspecified, uncomplicated; F15.90 Other stimulant use, unspecified, uncomplicated; Z56.0 Unemployment, unspecified; Z87.81 Personal history of (healed) traumatic fracture; Z90.49 Acquired absence of other specified parts of digestive tract; Z79.2 Long term (current) use of antibiotics; Z79.899 Other long term (current) drug therapy; W25.XXXA Contact with sharp glass, initial encounter; Y93.89 Activity, other specified; Y92.89 Other specified places as the place of occurrence of the external cause; Y99.8 Other external cause status
CPT/HCPCS: 99284

== ENCOUNTER 2020-08-31 02:36 | Emergency (ER) | payer MEDICAID ==
[~2020-08-31] VITALS: Ht 177.8 cm; Wt 72.7 kg
[~2020-08-31 02:36] MED LIST changes: +ACET-812 PO; +CLIN150C8 PO
[2020-08-31] MEDS ORDERED: ketorolac tromethamine 15mg/ml inj. IM ONE (02:50)
--- NOTE | 2020-08-31 03:09 | NUR ---
education technician at bedside.
[2020-08-31] MEDS ORDERED: azithromycin 250mg tablet PO SCH (03:25)
[2020-08-31] MEDS ORDERED: CEFTRIAXONE 500 MG VIAL IM ONE (03:25)
[2020-08-31] MEDS ORDERED: CefTRIAXone 1000mg IM Kit (w/lidocaine diluent) IM ONE (03:35)
[2020-08-31] MEDS ORDERED: HYDROcodone/acetaminophen 10/325mg tab PO ONE (03:55)
[2020-08-31 03:56] LABS: CLARITY,URINE CLOUDY (Clear); COLOR,URINE YELLOW (Yellow); GLUCOSE, URINE NEGATIVE (Neg); KETONES,URINE NEGATIVE (Neg); LEUKOCYTE ESTERASE ,URINE MODERATE (Neg); NITRITES, URINE NEGATIVE (Neg); OCCULT BLOOD,URINE SMALL (Neg); PH,URINE 7.5 (4.8-8.0); PROTEIN,URINE 100 mg/dl (Neg); UROBILINOGEN,URINE >=8.0 E.U/dL (0.2-1.0)
[2020-08-31 04:00] LABS: UA COLLECTION TYPE CLN CATCH MIDSTREAM
[2020-08-31 04:02] LABS: BACTERIA,URINE 2+ /HPF (Neg); SQUAMOUS EPITHELIAL CELL,UR FEW /LPF (FEW); WBC,URINE 50-100 /HPF (0-4)
[2020-08-31 05:14] VITALS: BP 112/52
== END 2020-08-31 04:30 | disposition home or self-care (01) ==
LOC: ER 02:37
DX: N50.811 Right testicular pain (principal); R30.9 Painful micturition, unspecified; F12.90 Cannabis use, unspecified, uncomplicated; F15.90 Other stimulant use, unspecified, uncomplicated; Z90.89 Acquired absence of other organs; Z72.89 Other problems related to lifestyle; Z56.0 Unemployment, unspecified; Z79.2 Long term (current) use of antibiotics; Z79.899 Other long term (current) drug therapy
CPT/HCPCS: 76870; 81001; 87088; 93976; 96372; 99284; J0696; J1885

== ENCOUNTER 2020-11-07 22:48 | Emergency (ER) | payer MEDICAID | END 2020-11-07 23:00 | disposition left against medical advice (07) | LOC: ER 22:48 | DX: Z53.21 Procedure and treatment not carried out due to patient leaving prior to being seen by health care provider (principal) ==

== ENCOUNTER 2021-06-07 17:37 | Emergency (ER) | payer MEDICAID ==
[~2021-06-07] VITALS: Ht 180.3 cm; Wt 68.2 kg
[2021-06-07 19:21] VITALS: BP 135/82
== END 2021-06-07 19:28 ==
LOC: ER 17:37
DX: Z00.8 Encounter for other general examination (principal); T18.5XXD Foreign body in anus and rectum, subsequent encounter; F12.90 Cannabis use, unspecified, uncomplicated; F15.90 Other stimulant use, unspecified, uncomplicated; F19.90 Other psychoactive substance use, unspecified, uncomplicated; Z90.89 Acquired absence of other organs; Z72.89 Other problems related to lifestyle; Z56.0 Unemployment, unspecified; Z59.00 Homelessness unspecified; Z79.2 Long term (current) use of antibiotics; Z79.899 Other long term (current) drug therapy; X58.XXXD Exposure to other specified factors, subsequent encounter
CPT/HCPCS: 74018; 99283

== ENCOUNTER 2021-08-24 09:34 | Emergency (ER) | payer MEDICAID ==
[~2021-08-24] VITALS: Ht 180.3 cm; Wt 68.2 kg
[2021-08-24] MEDS ORDERED: normal saline 1000ML IV soln IVB ONE (10:15)
[2021-08-24] MEDS ORDERED: phenazopyridine 100mg tablet PO ONE (10:15)
[2021-08-24] MEDS ORDERED: metroNIDAZOLE 500mg tablet PO ONE (10:15)
[2021-08-24] MEDS ORDERED: ondansetron/PF 4mg/2ml inj IV ONE (10:15)
[2021-08-24] MEDS ORDERED: CefTRIAXone 250MG IM Kit w/LIDOcaine IM ONE (10:15)
[2021-08-24] MEDS ORDERED: azithromycin 250mg tablet PO ONE (10:15)
[2021-08-24] MEDS ORDERED: ketorolac trometh. 30mg/ml inj. IV ONE (10:15)
[2021-08-24 11:31] LABS: BASOPHILS % (AUTO) 0.1 % (0-1); EOSINOPHILS % (AUTO) 0 % (0-6); HEMATOCRIT 42.8 % (42.0-52.0); HEMOGLOBIN 14.2 g/dl (14.0-17.9); LYMPHOCYTES % (AUTO) 6.1 % (21-51); MEAN CORPUSCULAR HEMOGLOBIN 27.7 PG (27.0-31.0); MEAN CORPUSCULAR HGB CONC 33.2 g/dL (33.0-36.5); MEAN CORPUSCULAR VOLUME 83.3 FL (78-98); MEAN PLATELET VOLUME 7.2 FL (7.4-10.4); MONOCYTES % (AUTO) 5.9 % (2-12); NEUTROPHILS % (AUTO) 87.9 % (42-75); PLATELET COUNT 242 X10'3 (140-440); RED BLOOD COUNT 5.13 X10'6 (4.70-6.10); RED CELL DISTRIBUTION WIDTH 13.4 % (11.5-14.5)
[2021-08-24 11:47] LABS: ALANINE AMINOTRANSFERASE 25 U/L (12-78); ALBUMIN 3.7 G/DL (3.4-5.0); ALBUMIN/GLOBULIN RATIO 0.9 (1.1-1.5); ALKALINE PHOSPHATASE 96 IU/L (46-116); ANION GAP 12 (8-16); ASPARTATE AMINO TRANSFERASE 25 U/L (10-37); BILIRUBIN,TOTAL 1.5 MG/DL (0.1-1.0); BLOOD UREA NITROGEN 7 MG/DL (7-18); BUN/CREATININE RATIO 10.3 (5.4-32.0); CALCIUM 9.3 MG/DL (8.5-10.1); CHLORIDE 102 MMOL/L (99-107); CREATININE 0.68 MG/DL (0.60-1.10); GLUCOSE 119 MG/DL (70-104); POTASSIUM 3.8 MMOL/L (3.5-5.1); SODIUM 138 MMOL/L (135-145); TOTAL CARBON DIOXIDE 24.4 MMOL/L (24-32); TOTAL PROTEIN 7.6 G/DL (6.4-8.2); eGFR > 90 ML/MIN
[2021-08-24 11:47] LABS: CLARITY,URINE SLIGHTLY CLOUDY (Clear); COLOR,URINE ORANGE (Yellow); UA COLLECTION TYPE STRAIGHT CATH
[2021-08-24 11:53] LABS: BACTERIA,URINE FEW /HPF (Neg); MUCUS STRANDS FEW /LPF (Neg); RBC,URINE 0-2 /HPF (0-2); SQUAMOUS EPITHELIAL CELL,UR NONE SEEN /LPF (FEW); WBC CLUMPS,URINE FEW /HPF (NEGATIVE); WBC,URINE 20-30 /HPF (0-4)
--- NOTE | 2021-08-24 12:11 | NUR ---
event crew technician at bedside.
[2021-08-24] MEDS ORDERED: CEPH-585 PO (13:01)
[2021-08-24] MEDS ORDERED: PHEN-716 PO (13:01)
[2021-08-24 13:29] VITALS: BP 129/73
== END 2021-08-24 13:32 | disposition home or self-care (01) ==
LOC: ER 09:34
DX: N50.812 Left testicular pain (principal); N50.82 Scrotal pain; N50.89 Other specified disorders of the male genital organs; N45.1 Epididymitis; N45.2 Orchitis; N43.3 Hydrocele, unspecified; R30.0 Dysuria; F12.90 Cannabis use, unspecified, uncomplicated; F15.90 Other stimulant use, unspecified, uncomplicated; F19.90 Other psychoactive substance use, unspecified, uncomplicated; Z90.89 Acquired absence of other organs; Z72.89 Other problems related to lifestyle; Z59.00 Homelessness unspecified; Z56.0 Unemployment, unspecified; Z79.2 Long term (current) use of antibiotics; Z79.899 Other long term (current) drug therapy
CPT/HCPCS: 36415; 74176; 76870; 80053; 81001; 85025; 87088; 87491; 87591; 96361; 96372; 96374; 96375; 99285; J0696; J1885; J2405; J7030

== ENCOUNTER 2023-04-27 23:28 | Emergency (ER) | payer MEDICAID ==
[~2023-04-27] VITALS: Ht 180.3 cm; Wt 70.9 kg
[~2023-04-27 23:28] MED LIST changes: +CLIN-214 PO; -CLIN150C8 PO; +PHEN-716 PO
[2023-04-28 01:24] VITALS: BP 119/66; PULSE 93; RESP 16; TEMP 98.3; O2SAT 97
== END 2023-04-28 01:25 | disposition home or self-care (01) ==
LOC: ER 23:29
DX: F11.20 Opioid dependence, uncomplicated (principal); F12.90 Cannabis use, unspecified, uncomplicated; F15.90 Other stimulant use, unspecified, uncomplicated; Z79.1 Long term (current) use of non-steroidal anti-inflammatories (NSAID); Z79.2 Long term (current) use of antibiotics; Z79.899 Other long term (current) drug therapy; Z98.890 Other specified postprocedural states
CPT/HCPCS: 99281

== ENCOUNTER 2024-01-04 03:10 | Emergency (ER) | payer MEDICAID, OTHER ==
[~2024-01-04] VITALS: Ht 177.8 cm; Wt 62.7 kg
[2024-01-04] MEDS ORDERED: SULF1TAB49 PO (03:51)
[2024-01-04] MEDS: sulfamethoxazole/trimethoprim DS (800/160mg) tablet PO ONE (03:53)
[2024-01-04 03:54] VITALS: BP 120/68; PULSE 75; RESP 14; TEMP 98.6; O2SAT 98
== END 2024-01-04 03:55 | disposition home or self-care (01) ==
LOC: ER 03:10
DX: H00.012 Hordeolum externum right lower eyelid (principal); L73.8 Other specified follicular disorders; F12.90 Cannabis use, unspecified, uncomplicated; F15.90 Other stimulant use, unspecified, uncomplicated; F19.90 Other psychoactive substance use, unspecified, uncomplicated; Z79.1 Long term (current) use of non-steroidal anti-inflammatories (NSAID); Z79.899 Other long term (current) drug therapy; Z79.2 Long term (current) use of antibiotics; Z90.49 Acquired absence of other specified parts of digestive tract; Z72.89 Other problems related to lifestyle; Z59.00 Homelessness unspecified; Z56.0 Unemployment, unspecified
CPT/HCPCS: 99283

== ENCOUNTER 2024-03-08 16:51 | Emergency (ER) | payer OTHER | END 2024-03-08 16:54 | disposition left against medical advice (07) | LOC: ER 16:52 | DX: T50.901A Poisoning by unspecified drugs, medicaments and biological substances, accidental (unintentional), initial encounter (principal); Z53.21 Procedure and treatment not carried out due to patient leaving prior to being seen by health care provider; Y92.89 Other specified places as the place of occurrence of the external cause ==

== ENCOUNTER 2024-10-07 10:10 | Emergency (ER) | payer MEDICAID, OTHER ==
[~2024-10-07] VITALS: Ht 177.8 cm; Wt 51.8 kg
[2024-10-07 10:15] VITALS: BP 130/80; PULSE 85; RESP 15; O2SAT 99
[2024-10-07] MEDS ORDERED: NALO4SPR22 (10:39)
[2024-10-07] MEDS ORDERED: BUPR1FIL3 SL (10:39)
[2024-10-07 10:50] VITALS: TEMP 97.7
== END 2024-10-07 10:52 | disposition home or self-care (01) ==
LOC: ER 10:10
DX: F11.90 Opioid use, unspecified, uncomplicated (principal); F15.90 Other stimulant use, unspecified, uncomplicated; F12.90 Cannabis use, unspecified, uncomplicated; F19.90 Other psychoactive substance use, unspecified, uncomplicated; Z59.00 Homelessness unspecified; Z56.0 Unemployment, unspecified; Z72.89 Other problems related to lifestyle; Z79.899 Other long term (current) drug therapy; Z79.1 Long term (current) use of non-steroidal anti-inflammatories (NSAID); Z90.49 Acquired absence of other specified parts of digestive tract
CPT/HCPCS: 99281

== ENCOUNTER 2024-10-22 16:23 | Emergency (ER) | payer MEDICAID ==
[~2024-10-22] VITALS: Ht 177.8 cm; Wt 62.3 kg
[~2024-10-22 16:23] MED LIST changes: +NALO4SPR22
[2024-10-22 16:25] VITALS: BP 134/79; PULSE 88; RESP 16; TEMP 98.3; O2SAT 98
--- NOTE | 2024-10-22 16:48 | Physician Documentation ---
HPI ~ General Chief Complaint: Medication Request Stated Complaint: MED REQUEST Time Seen by MD: 16:29 OK to notify your PCP?: Yes Primary Medical Doctor: none Source: patient Mode of Arrival: POV Exam Limitations: no limitations History of Present Illness HPI Comments 34-year-old male who is here to get a refill of Suboxone. He states he last took Suboxone yesterday. He normally goes to the [facility] for his Suboxone but was unable to get there today due to having another appointment. He has been on Suboxone for quite some time. No other concerns or complaints. Medication Reconciliation Allergies: Coded Allergies: No Known Allergies (Unverified , 06/07/21) Scheduled Acetaminophen (Tylenol Extra Strength), 2 TABLET PO Q6H Buprenorphine Hcl/Naloxone Hcl (Suboxone 8 Mg-2 Mg Sl Film), 2 STRIP SL DAILY Clindamycin HCl (Clindamycin HCl CAPSULE), 1 CAP PO TID Lactobacillus Rhamnosus (Culturelle), 10,000 MMU PO Q12H Mesalamine (Lialda), 4.8 GM PO DAILY Metronidazole (Flagyl), 500 MG PO TID Naloxone HCl (Naloxone HCl), 1 SPR NA PRN Phenazopyridine HCl (Pyridium), 1 TAB PO Q8H Discontinued Medications Buprenorphine Hcl/Naloxone Hcl (Suboxone 8 Mg-2 Mg Sl Film), 1 STRIP SL BID Discontinued Reason: Auto Discontinued Past Medical History Past Medical History: *GI/HEPATOBILIARY*, Pancreatitis, Extremity Fracture, Cellulitis Past Surgical History: appendectomy Other Past Family History: NONCONTRIBUTORY Alcohol Use: Occasionally Drug Use: marijuana, methamphetamine, other Lives with: Family Lives In: Home, Homeless Occupation: unemployed Review of Systems All Other Systems at this time: Reviewed and Negative Physical Exam Physical Exam Vital Signs: Temperature: 98.3, Source: Oral, Heart Rate: 88, Respiratory Rate: 16, BP: 134/79, Pulse Oximetry: 98, Weight: 62.300 Oxygen Flow Rate: 0 Physical Exam GENERAL: Alert, no acute distress. HEENT: NCAT, EOMI, PERRL, normal oropharynx, moist oral mucosa. NECK: Supple, trachea midline. CARDIAC: Regular rate and rhythm, no murmurs, rubs, or gallops. RESPIRATORY: Equal breath sounds, clear to auscultation bilaterally, no respiratory distress. MUSCULOSKELETAL: Normal range of motion, nontender, no swelling. Normal gait. NEUROLOGICAL: Awake, alert, and oriented x 3. SKIN: Warm/dry, no pallor, no rash. PSYCH: Alert and appropriate. Affect congruent with mood. Speech is clear. Good eye contact. Progress Results/Orders Results/Orders Vital Signs 10/22/24 16:25 Temp 98.3 Pulse 88 Resp 16 B/P (MAP) 134/79 Pulse Ox 98 O2 Flow Rate 0 Medical Decision Making Differential Dx:Considerations: Include: Adverse circumstances, Economic, Psychosocial, Medical services unavail., Medication refill, Medication non- compliance Departure Time of Disposition: 16:59 Disposition: 01 HOME / SELF CARE / HOMELESS Impression: Primary Impression: Opioid use disorder Condition: Stable Discharge Instructions: Medicine Refill at the Emergency Department Additional Instructions: f/u with Tiffanie Van next week for your suboxone refills and monitoring Referrals: NO PRIMARY CARE PROVIDER (PCP) Prescriptions Buprenorphine Hcl/Naloxone Hcl (Suboxone 8 Mg-2 Mg Sl Film) 8 Mg-2 Mg Film 2 STRIP SL DAILY for 7 Days, #14 STRIP dx: F11.20 Prov: JULIA LORD 10/22/24 Education Educated: Patient Educated regarding: diagnosis, treatment, need for follow up Signature Scribe Signature: x Attestation: JULIA Faust October 22, 2024 16:48
[2024-10-22] MEDS ORDERED: BUPR1FIL3 SL (16:57)
== END 2024-10-22 17:11 | disposition home or self-care (01) ==
LOC: ER 16:23
DX: F11.10 Opioid abuse, uncomplicated (principal); F12.90 Cannabis use, unspecified, uncomplicated; F15.90 Other stimulant use, unspecified, uncomplicated; Z56.0 Unemployment, unspecified; Z59.00 Homelessness unspecified; Z90.49 Acquired absence of other specified parts of digestive tract; Z79.899 Other long term (current) drug therapy; Z72.89 Other problems related to lifestyle; Z76.0 Encounter for issue of repeat prescription
CPT/HCPCS: 99281